=== PATIENT | female | born 1990 | race Caucasian/White ===

== ENCOUNTER → 2016-06-04 | Outpatient (CLI) | payer BC ==
[~2016-06-04] MED LIST: BCPILLS PO; CHOL1000 PO; CLR10 PO; CYAN500T PO; FOLI1TAB7 PO; IBUP-1050 PO; PRENTAB26 PO
== END | disposition home or self-care (01) ==
LOC: C.PAPS 08:19
PROVIDERS: ATTEND Obstetrics & Gynecology
DX: Z01.419 Encounter for gynecological examination (general) (routine) without abnormal findings (principal)

== ENCOUNTER → 2016-09-06 | Outpatient (CLI) | payer BC ==
[2016-09-06 17:43] LABS: PREG INTERNAL NEGATIVE QC NEG CLEAR BACKGROUND; PREG INTERNAL POSITIVE QC POS CONTROL LINE
== END | disposition home or self-care (01) ==
LOC: C.LABBFT 11:25
PROVIDERS: ATTEND Physician Assistant Medical
DX: N92.6 Irregular menstruation, unspecified (principal)

== ENCOUNTER 2016-09-07 08:52 | Emergency (ER) | payer BC ==
[~2016-09-07] VITALS: Ht 175.3 cm; Wt 60.0 kg
[~2016-09-07 08:52] MED LIST changes: -CHOL1000 PO; -CLR10 PO; -CYAN500T PO; -FOLI1TAB7 PO; -PRENTAB26 PO
[2016-09-07 09:01] VITALS: TEMP 36.8; Ht 175.3 cm; Wt 60.0 kg
[2016-09-07] MEDS ORDERED: FOLI1TAB7 PO (09:10)
[2016-09-07] MEDS ORDERED: PRENTAB26 PO (09:10)
[2016-09-07] MEDS ORDERED: CLR10 PO (09:10)
[2016-09-07] MEDS ORDERED: CHOL1000 PO (09:10)
[2016-09-07] MEDS ORDERED: CYAN500T PO (09:10)
[2016-09-07 09:35] LABS: BASO % 0.2 %; BASO ABS # 0.01 K/uL (0-0.2); COMPLETE YES; EOS % 2.4 %; IG% 0.2 %; LYMPH % 15.3 %; LYMPH ABS # 0.69 K/uL (1.2-3.4); MEAN CELL VOLUME 96.8 fL (80-100); MEAN CORPUSCULAR HGB CONC 34.1 g/dl (32-36); MONO % 12.9 %; PLATELET COUNT 245 K/uL (130-400); RED BLOOD COUNT 4.03 M/uL (4.2-5.4)
[2016-09-07 09:37] LABS: URINE APPEARANCE CLEAR (CLEAR); URINE BILIRUBIN NEG (NEG); URINE COLOR YELLOW; URINE EPITHELIAL CELL AUTO >30 /lpf (0-5); URINE NITRITE NEG (NEG); URINE PH 5.5 (4.5-7.5); UROBILINOGEN NEG (NEG)
[2016-09-07 09:45] LABS: REVIEW REQ? NO
[2016-09-07 09:46] LABS: MANUAL MICROSCOPIC REQUIRED? NO
[2016-09-07] MEDS ORDERED: SODIUM CHLORIDE 0.9% 1000ML 1,000 ML IV STA (09:49)
[2016-09-07 09:51] LABS: CALCIUM 8.7 mg/dl (8.5-10.1)
[2016-09-07 09:58] LABS: BUN/CREATININE RATIO 15.7 (10-20); CREATININE 0.7 mg/dl (0.60-1.20); POTASSIUM 3.8 mmol/L (3.5-5.1)
--- NOTE | 2016-09-07 10:55 | DIAGNOSTIC IMAGING REPORT ---
PELVIC ULTRASOUND, TRANSABDOMINAL AND TRANSVAGINAL HISTORY: Bleeding EVALUATE OB-RECEIVING TELLER/VAGINAL BLEEDING COMPARISON: None. FINDINGS: Uterus: Partial bicornuate configuration. Retroflexed. Endometrial stripe: 6 mm Right ovary: 3.3 cm with normal vascular flow Left ovary: 2.8 cm with normal vascular flow. 1.7 cm cyst. Miscellaneous:No pelvic free fluid. IMPRESSION: 1. Bicornuate retroflexed uterus.. 2. Small left ovarian cyst. 3. Otherwise negative study Electronically signed by: Herman Low M.D. 09/07/2016 10:54 AM Dictated Date/Time: 09/07/2016 10:51 AM
--- NOTE | 2016-09-07 11:43 | EMERGENCY ROOM VISIT NOTE ---
History First contact with patient: 09:02 Chief Complaint: ED VAG BLEEDING Stated Complaint: BLEEDING/ 6-8 WKS PREG. REFERRED TO ER History of Present Illness The patient is a 25 year old female who presents to the Emergency Room with complaints of vaginal bleeding that started this morning. Patient states that yesterday she was at her PCP and had a test done that was positive. She states this morning she had a small amount of spotting, called her PCP who told her to go to the ER. She denies any abdominal pain or cramping, back pain , urinary symptoms, abnormal vaginal discharge, fever/chills, dizziness or syncope.. She is . She states she went off her control a few months ago and she and her have been trying to get . Review of Systems GENERAL: Denies fevers, chills, malaise, fatigue, unintentional weight changes. HEENT: Denies dizziness, visual problems, hearing loss, tinnitus. Denies difficulty swallowing or oral lesions. PULMONARY: Denies cough, shortness of breath, sputum production or hemoptysis. CARDIOVASCULAR: Denies chest pain, palpitations, dyspnea on exertion, orthopnea or peripheral edema. GASTROINTESTINAL: Denies diarrhea, constipation, nausea, vomiting, or abdominal pain. GENITOURINARY: Denies dysuria, frequency, urgency or nocturia. + Vaginal bleeding. NEUROLOGIC: Denies history of epilepsy, CVA, TIA or chronic headaches. MUSCULOSKELETAL: Denies history of joint tenderness/swelling. SKIN: Denies rashes or lesions. PSYCHIATRIC: Denies history of depression or mental illness. ENDOCRINE: Denies history of diabetes, thyroid disorders, abnormal hair growth or sexual dysfunction. Past Medical/Surgical History Medical Problems: (1) History of migraine Social History Smoking Status: Never Smoker Alcohol Use: occasionally Drug Use: none Marital Status: in relationship Housing Status: lives with significant other Occupation Status: employed Current/Historical Medications Scheduled Cholecalciferol (Vitamin D3), 1 TAB PO DAILY Cyanocobalamin (Vitamin B-12), 1 TAB PO DAILY Folic Acid (Folvite), 1 TAB PO DAILY Loratadine (Claritin), 10 MG PO DAILY Multivit/Min/Iron/Fol Ac/Pren ( Vitamin), 1 TAB PO DAILY Allergies Coded Allergies: No Known Allergies (Unverified , 07/05/15) Physical Exam Vital Signs Date Time Temp Pulse Resp B/P Pulse Ox O2 Delivery O2 Flow Rate FiO2 09/07/16 12:09 89 18 111/73 99 Room Air 09/07/16 10:47 105 18 121/72 99 Room Air 09/07/16 09:01 36.8 122 16 124/83 99 Room Air Pain Rating (0-10): 0 Physical Exam CONSTITUTIONAL: No acute distress. Well appearing and well nourished. Alert and oriented X 4 with normal affect. HEENT: Normocephalic, atraumatic. Pupils equal, round and reactive to light, EOMI. TMs normal. Pharynx normal. Moist mucous membranes. NECK: Supple, full active range of motion without discomfort. RESPIRATORY: Clear to auscultation bilaterally with no wheezing, crackles, rhonchi or stridor. Equal expansion bilaterally. CARDIOVASCULAR: Regular rate and rhythm with no murmurs, rubs or gallops. Normal peripheral perfusion. No edema. GASTROINTESTINAL: Soft, nontender, nondistended. Bowel sounds present in all quadrants. GENITOURINARY: Pelvic exam performed, no abnormal discharge noted. Cervix is healthy appearing, os is closed, no active bleeding noted. No pain elicited on bimanual exam. MUSCULOSKELETAL: Full range of motion of all joints without discomfort. INTEGUMENTARY: No rash or other significant dermatologic conditions noted. NEUROLOGIC: Cranial nerves II-XII grossly intact. No focal neurologic deficits noted. Medical Decision & Procedures ER Provider Diagnostic Interpretation: PELVIC ULTRASOUND, TRANSABDOMINAL AND TRANSVAGINAL HISTORY: Bleeding EVALUATE OB-SURVEILLANCE TECHNICIAN/VAGINAL BLEEDING COMPARISON: None. FINDINGS: Uterus: Partial bicornuate configuration. Retroflexed. Endometrial stripe: 6 mm Right ovary: 3.3 cm with normal vascular flow Left ovary: 2.8 cm with normal vascular flow. 1.7 cm cyst. Miscellaneous:No pelvic free fluid. IMPRESSION: 1. Bicornuate retroflexed uterus.. 2. Small left ovarian cyst. 3. Otherwise negative study Laboratory Results 09/07/16 09:20 Red Blood Count 4.03, Mean Corpuscular Volume 96.8, Mean Corpuscular Hemoglobin 33.0, Mean Corpuscular Hemoglobin Concent 34.1, Mean Platelet Volume 9.0, Neutrophils (%) (Auto) 69.0, Lymphocytes (%) (Auto) 15.3, Monocytes (%) (Auto) 12.9, Eosinophils (%) (Auto) 2.4, Basophils (%) (Auto) 0.2, Neutrophils # (Auto ) 3.10, Lymphocytes # (Auto) 0.69, Monocytes # (Auto) 0.58, Eosinophils # (Auto ) 0.11, Basophils # (Auto) 0.01 09/07/16 09:20 Test 09/07/16 09:00 09/07/16 09:20 Urine Color YELLOW Urine Appearance CLEAR (CLEAR) Urine pH 5.5 (4.5-7.5) Urine Specific [place] 1.020 (1.000-1.030) Urine Protein NEG (NEG) Urine Glucose (UA) NEG (NEG) Urine Ketones NEG (NEG) Urine Occult Blood 2+ (NEG) Urine Nitrite NEG (NEG) Urine Bilirubin NEG (NEG) Urine Urobilinogen NEG (NEG) Urine Leukocyte Esterase NEG (NEG) Urine WBC (Auto) 1-5 /hpf (0-5) Urine RBC (Auto) 5-10 /hpf (0-4) Urine Hyaline Casts (Auto) 1-5 /lpf (0-5) Urine Epithelial Cells (Auto) >30 /lpf (0-5) Urine Bacteria (Auto) NEG (NEG) Urine Test NEG (NEG) White Blood Count 4.50 K/uL (4.8-10.8) Red Blood Count 4.03 M/uL (4.2-5.4) Hemoglobin 13.3 g/dL (12.0-16.0) Hematocrit 39.0 % (37-47) Mean Corpuscular Volume 96.8 fL (80-100) Mean Corpuscular Hemoglobin 33.0 pg (25-34) Mean Corpuscular Hemoglobin Concent 34.1 g/dl (32-36) Platelet Count 245 K/uL (130-400) Mean Platelet Volume 9.0 fL (7.4-10.4) Neutrophils (%) (Auto) 69.0 % Lymphocytes (%) (Auto) 15.3 % Monocytes (%) (Auto) 12.9 % Eosinophils (%) (Auto) 2.4 % Basophils (%) (Auto) 0.2 % Neutrophils # (Auto) 3.10 K/uL (1.4-6.5) Lymphocytes # (Auto) 0.69 K/uL (1.2-3.4) Monocytes # (Auto) 0.58 K/uL (0.11-0.59) Eosinophils # (Auto) 0.11 K/uL (0-0.5) Basophils # (Auto) 0.01 K/uL (0-0.2) RDW Standard Deviation 42.6 fL (36.4-46.3) RDW Coefficient of Variation 11.9 % (11.5-14.5) Immature Granulocyte % (Auto) 0.2 % Immature Granulocyte # (Auto) 0.01 K/uL (0.00-0.02) Anion Gap 8.0 mmol/L (3-11) Est Creatinine Clear Calc Drug Dose 116.4 ml/min Estimated GFR () 139.6 Estimated GFR (Non- 120.4 BUN/Creatinine Ratio 15.7 (10-20) Calcium Level 8.7 mg/dl (8.5-10.1) Human Chorionic Gonadotropin, Quant 12 mIU/mL Medications Administered Medications (Trade) Dose Ordered Sig/Norah Route Start Time Stop Time Status Last Admin Dose Admin Sodium Chloride (Nss 1000ml) 1,000 ml @ 999 mls/hr Q1H1M STAT IV 09/07/16 09:49 09/07/16 10:49 DC 09/07/16 09:55 999 MLS/HR Medical Decision CC: Patient presenting with complaint of vaginal bleeding in early . Interpretation of Labs: No leukocytosis, no anemia, no UTI. Beta Quant hCG level is extremely low, no previous level for correlation. Differential Diagnosis: Includes, but not limited to ectopic , threatened miscarriage, ovarian cyst, subchorionic hemorrhage. Summary: Patient was evaluated at bedside, history of physical exam performed. She is alert and in no distress. She has no abdominal tenderness on exam. She is initially quite tachycardic on arrival, appears very anxious. She does not appear anemic or dehydrated. Orders were placed at bedside for labs, UA, IV fluid bolus, transvaginal ultrasound to evaluate for competitions of early . Patient discussed with Dr. Arellano, who agrees with my assessment and plan. Labs reviewed, no significant abnormalities. HCG Quant marginally elevated. Ultrasound reviewed, no identifiable IUP. There is a small left ovarian cyst. Given the very low beta Quant and LMP less than 4 weeks ago, I suspect patient may be very early in her , which is why we are unable to identify IUP today. Cannot fully rule out ectopic versus possible threatened miscarriage. Patient and her were educated on this and the importance of close follow-up. Patient reassessed multiple times throughout ED stay, tachycardia resolved after IV fluid bolus. Patient remained stable and without complaint. No active vaginal bleeding while in the ER. Patient was provided with OB referral for follow-up and encouraged to call to make an appointment today. She was also given strict return precautions, she and verbalized understanding. Impression Primary Impression: Threatened miscarriage in early Departure Information Dispostion Home / Self-Care Condition GOOD Referrals Karrie Canales, C.R.N.P. (PCP) Henny Wise M.D. Patient Instructions ED Miscarriage Poss, My [facility] Additional Instructions Drink plenty of fluids to stay well hydrated. Call the OB office to set up a follow-up appointment in the next few days. Please return to the ER for worsening symptoms, including severe abdominal pain , heavy vaginal bleeding (soaking through more than 1 pad per hour) or passing large clots, fever/chills/feeling ill, or any other concerns.
[2016-09-07 12:09] VITALS: BP 111/73; PULSE 89; O2SAT 99
--- NOTE | 2016-09-11 12:32 | DIAGNOSTIC IMAGING REPORT ---
PELVIC ULTRASOUND, TRANSABDOMINAL AND TRANSVAGINAL HISTORY: Bleeding EVALUATE OB-DINING ROOM BUSSER/VAGINAL BLEEDING COMPARISON: None. FINDINGS: Uterus: Partial bicornuate configuration. Retroflexed. Endometrial stripe: 6 mm Right ovary: 3.3 cm with normal vascular flow Left ovary: 2.8 cm with normal vascular flow. 1.7 cm cyst. Miscellaneous:No pelvic free fluid. IMPRESSION: 1. Bicornuate retroflexed uterus.. 2. Small left ovarian cyst. 3. Otherwise negative study Electronically signed by: Herman Low M.D. 09/07/2016 10:54 AM Dictated Date/Time: 09/07/2016 10:51 AM
== END 2016-09-07 12:42 | disposition home or self-care (01) ==
LOC: C.EDB 08:53
DX: O20.0 Threatened abortion (principal)

== ENCOUNTER → 2016-09-11 | Outpatient (CLI) | payer BC ==
[~2016-09-11] MED LIST changes: -BCPILLS PO; +CHOL1000 PO; +CLR10 PO; +CYAN500T PO; +FOLI1TAB7 PO; -IBUP-1050 PO; +PRENTAB26 PO
== END | disposition home or self-care (01) ==
LOC: C.LAB1850 14:52
PROVIDERS: ATTEND Obstetrics & Gynecology
DX: O20.0 Threatened abortion (principal)

== ENCOUNTER → 2016-10-09 | Outpatient (CLI) | payer BC | END | disposition home or self-care (01) | LOC: C.LAB1850 16:53 | PROVIDERS: ATTEND Obstetrics & Gynecology | DX: Z34.90 Encounter for supervision of normal pregnancy, unspecified, unspecified trimester (principal) ==

== ENCOUNTER → 2016-10-15 | Outpatient (CLI) | payer BC | END | disposition home or self-care (01) | LOC: C.LAB1850 16:30 | PROVIDERS: ATTEND Obstetrics & Gynecology | DX: Z34.90 Encounter for supervision of normal pregnancy, unspecified, unspecified trimester (principal) ==

== ENCOUNTER → 2016-11-08 | Outpatient (CLI) | payer BC ==
[2016-11-08 19:17] LABS: URINE APPEARANCE CLEAR (CLEAR); URINE BILIRUBIN NEG (NEG); URINE COLOR YELLOW; URINE EPITHELIAL CELL AUTO >30 /lpf (0-5); URINE NITRITE NEG (NEG); URINE SPECIFIC GRAVITY 1.023 (1.000-1.030); UROBILINOGEN NEG (NEG)
[2016-11-08 19:21] LABS: MANUAL MICROSCOPIC REQUIRED? NO; REVIEW REQ? NO
[2016-11-11 14:08] LABS: CHLAMYDIA TRACH RNA*** NOT DETECTED (NOT DETECTED); GC (NEIS GONORRHOEAE)RNA** NOT DETECTED (NOT DETECTED)
== END | disposition home or self-care (01) ==
LOC: C.LABSPEC 16:50
PROVIDERS: ATTEND Obstetrics & Gynecology
DX: O09.291 Supervision of pregnancy with other poor reproductive or obstetric history, first trimester (principal); Z3A.00 Weeks of gestation of pregnancy not specified

== ENCOUNTER → 2017-01-04 | Outpatient (CLI) | payer BC ==
[2017-01-04 17:26] LABS: GTGD 50 Grams
== END | disposition home or self-care (01) ==
LOC: C.LAB1850 14:53
PROVIDERS: ATTEND Obstetrics & Gynecology
DX: Z34.02 Encounter for supervision of normal first pregnancy, second trimester (principal)

== ENCOUNTER → 2017-03-22 | Outpatient (CLI) | payer BC ==
[~2017-03-22] MED LIST changes: -FOLI1TAB7 PO; +FOLI1TAB8 PO
[2017-03-22 16:20] LABS: URINE APPEARANCE CLEAR (CLEAR); URINE BILIRUBIN NEG (NEG); URINE COLOR YELLOW; URINE EPITHELIAL CELL AUTO >30 /lpf (0-5); URINE NITRITE NEG (NEG); URINE SPECIFIC GRAVITY 1.008 (1.000-1.030); UROBILINOGEN NEG (NEG)
[2017-03-22 16:26] LABS: MANUAL MICROSCOPIC REQUIRED? NO; REVIEW REQ? NO
[2017-03-22 16:32] LABS: HEMATOCRIT 34.7 % (37-47)
[2017-03-22 17:46] LABS: GTGD 50 Grams
== END | disposition home or self-care (01) ==
LOC: C.LAB1850 14:54
PROVIDERS: ATTEND Obstetrics & Gynecology
DX: Z34.02 Encounter for supervision of normal first pregnancy, second trimester (principal); Z3A.00 Weeks of gestation of pregnancy not specified

== ENCOUNTER → 2017-05-17 | Outpatient (CLI) | payer OTHER | END | disposition home or self-care (01) | LOC: C.LABSPEC 17:33 | PROVIDERS: ATTEND Obstetrics & Gynecology | DX: Z34.03 Encounter for supervision of normal first pregnancy, third trimester (principal) ==

== ENCOUNTER 2017-05-31 15:38 | Observation (INO) | payer OTHER ==
[~2017-05-31] VITALS: Ht 170.2 cm; Wt 65.0 kg
[2017-05-31 16:14] VITALS: Ht 170.2 cm; Wt 65.0 kg
[2017-05-31] MEDS ORDERED: MoRPHine SULFATE 2 MG/ML CARP IV STA (16:27)
[2017-05-31] MEDS ORDERED: LACTATED RINGER'S 1000ML 500 ML IV ONE (16:27)
[2017-05-31] MEDS ORDERED: ONDANSETRON INJ 2 MG/ML 2 ML VIAL IV PRN (16:30)
[2017-05-31] MEDS ORDERED: PROMETHAZINE HCL INJ 25 MG in SODIUM CHLORIDE 0.9% 50ML 50 ML IV PRN (16:30)
[2017-05-31 16:53] LABS: BASO % 0.1 %; BASO ABS # 0.01 K/uL (0-0.2); EOS % 1.2 %; EOS ABS # 0.11 K/uL (0-0.5); HEMATOCRIT 35.7 % (37-47); HEMOGLOBIN 12.4 g/dL (12.0-16.0); IG# 0.03 K/uL (0.00-0.02); LYMPH % 12.8 %; MEAN CELL VOLUME 96.7 fL (80-100); MEAN CORPUSCULAR HEMOGLOBIN 33.6 pg (25-34); MEAN PLATELET VOLUME 9.3 fL (7.4-10.4); MONO % 8.9 %; MONO ABS # 0.83 K/uL (0.11-0.59); NEUT % 76.7 %; NEUT ABS # 7.18 K/uL (1.4-6.5); PLATELET COUNT 204 K/uL (130-400); RED CELL DISTRIBUTION WIDTH CV 12.6 % (11.5-14.5); RED CELL DISTRIBUTION WIDTH SD 44.2 fL (36.4-46.3); WHITE BLOOD COUNT 9.36 K/uL (4.8-10.8)
[2017-05-31 17:01] LABS: MEAN CORPUSCULAR HGB CONC 34.7 g/dl (32-36)
[2017-05-31] MEDS ORDERED: CEFTRIAXONE SOD INJ 1 GM in DEXTROSE 5% ADD-VANTAGE 50ML 50 ML IV SCH (17:15)
--- NOTE | 2017-05-31 18:10 | DIAGNOSTIC IMAGING REPORT ---
CT OF THE ABDOMEN AND PELVIS WITHOUT CONTRAST, STONE PROTOCOL CLINICAL HISTORY: Left flank pain. 37 weeks patent. Pyelonephritis. COMPARISON STUDY: Pelvic ultrasound September 07, 2016. TECHNIQUE: Helical axial images of the abdomen and pelvis were obtained without IV or oral contrast according to renal stone protocol. A dose lowering technique was utilized adhering to the principles of ALARA. FINDINGS: Lung bases are clear. Unenhanced images of liver, spleen, adrenal glands and pancreas are unremarkable. There is moderate left and severe right hydroureteronephrosis. The ureters are dilated to the level of the pelvis. This dilatation is likely related to a gravid uterus. A fetus is noted with breech presentation. Please note that the fetus is suboptimally assessed by CT. There are punctate bilateral renal calculi that measure up to 2 mm. No definite ureteral calculi are identified. A 3 mm right pelvic calcification shown on image 383 of 491 is indeterminate. This could reflect a phlebolith or less likely a ureteral calculus. There are no left ureteral calculi. There is no evidence for a bowel obstruction. No suspicious osseous lesions are present. There is no pneumatosis, free air or portal venous gas. No bladder calculi are present. The appendix is not visualized. IMPRESSION: 1. Severe right and moderate left hydroureteronephrosis with dilatation of the ureters to the level of the pelvis. This dilatation is likely due to compression by the gravid uterus. 2. Punctate bilateral intrarenal calculi. 3 mm right pelvic calcification likely reflects a phlebolith however a small ureteral calculus could appear similar. No left ureteral calculi. 3. Intrauterine gestation. Breech presentation. Electronically signed by: Tonny Monahan M.D. 05/31/2017 6:09 PM Dictated Date/Time: 05/31/2017 5:56 PM
[2017-05-31] MEDS ORDERED: HYDROmorphone INJ 1 MG/ML SYR IV PRN (18:45)
[2017-05-31] MEDS ORDERED: HYDROmorphone INJ 1 MG/ML SYR ONE (18:45)
[2017-05-31] MEDS ORDERED: ACETAMINOPHEN IV 100 ML IV PRN (19:15)
[2017-05-31] MEDS: LACTATED RINGER'S 1000ML 1,000 ML IV SCH (21:02)
[2017-05-31] MEDS: CYCLOBENZAPRINE HCL 5 MG TAB PO PRN (22:06)
[2017-05-31] MEDS ORDERED: IV FLUIDS COMPLETED PRN (23:45)
[2017-06-01] MEDS: LACTATED RINGER'S 1000ML 1,000 ML IV SCH (02:07)
[2017-06-01] MEDS: CYCLOBENZAPRINE HCL 5 MG TAB PO PRN (06:18)
[2017-06-01] MEDS ORDERED: FLX5 PO (07:34)
--- NOTE | 2017-06-01 07:38 | Discharge Instructions ---
Discharge Instructions Date of Service Jun 01, 2017. Admission Reason for Admission: Pyelonephritis Discharge Discharge Diagnosis / Problem: back pain in Discharge Goals Goal(s): Continuing OB care Activity Recommendations Activity Limitations: resume your previous activity Lifting Limitations: no more than 10 pounds . Instructions / Follow-Up Instructions / Follow-Up SPECIAL CARE INSTRUCTIONS: Call Doctor if: * Regular contractions every 5 minutes. * Bleeding * Water breaks or is leaking * Decreased movement * Fever >100.4 degrees F * Pain not relieved by routine measures or pain medication ordered. FOLLOW UP VISIT: Return to Labor and Delivery on for /call for appointment time . Follow-up Visit with: When: Current Hospital Diet Patient's current hospital diet: Regular OB Diet Discharge Diet Recommended Diet: Regular OB Diet Pending Studies Studies pending at discharge: yes List of pending studies: urine culture Medical Emergencies . Who to Call and When: Medical Emergencies: If at any time you feel your situation is an emergency, please call 911 immediately. . Non-Emergent Contact Non-Emergency issues call your: Windows Systems Administrator . . "Provider Documentation" section prepared by Marielle Blanc. . VTE Core Measure Inpt VTE Proph given/why not?: Treatment not indicated
--- NOTE | 2017-06-05 13:45 | DISCHARGE SUMMARY ---
PRINCIPAL DIAGNOSES: Intrauterine at 37 weeks, breech presentation and left flank pain. HISTORY OF PRESENT ILLNESS: The patient is a 26-year-old G1, P0 white female who presents at 37 weeks with left flank pain. The pain had been ongoing for approximately 36 hours and appeared to be getting worse. It was a crescendo decrescendo kind of pain. Her urine was totally negative for bacteria and for any signs of infection. A CT scan was performed to rule out stone and there did not appear to be any stones in the left ureter, although there was a small calculus in the right kidney. The patient was afebrile. White count was normal. She was given IV Dilaudid and morphine which helped the pain somewhat, but not significantly. She was given IV Tylenol which seemed to help the most and then Flexeril 5 mg. The Flexeril seemed to make the biggest difference in her pain. By the morning of June 01 the patient was ready to go home and felt her pain was under control with the Flexeril. Hence the diagnosis of a probable muscular origin for her pain. The baby has remained category 1 throughout her hospital stay. There were only irregular contractions present. She was sent home in good condition with a prescription for Flexeril 5 mg p.o. q. 8 hours p.r.n. flank pain. She is to call for a temperature of 101 degrees or higher, burning or changes with urination, increased contractions that were every 5 minutes and lasting for at least a minute, particularly if this was happening for at least an hour. The patient is scheduled for a primary section on June 10 because of a persistent breech presentation and a septate uterus. She will follow up in the office for her usual OB care.
== END 2017-06-01 08:00 | disposition home or self-care (01) ==
LOC: C.OPB 15:38 → C.LD 15:38 → C.OPB 22:31
PROVIDERS: ADMIT Obstetrics & Gynecology; ATTEND Obstetrics & Gynecology
DX: O26.893 Other specified pregnancy related conditions, third trimester (principal); M54.9 Dorsalgia, unspecified; O62.9 Abnormality of forces of labor, unspecified; Z3A.37 37 weeks gestation of pregnancy

== ENCOUNTER 2017-06-10 07:04 | Inpatient (IN) | payer OTHER ==
--- NOTE | 2017-06-07 13:20 | PAT Medication Instructions ---
Service Date Jun 07, 2017. Current Home Medication List Cholecalciferol (Vitamin D3), 1 TAB PO HS Cyanocobalamin (Vitamin B-12), 1 TAB PO HS Cyclobenzaprine Hcl (Flexeril), 5 MG PO TID PRN for prn Folic Acid (Folvite), 1 TAB PO HS Multivit/Min/Iron/Fol Ac/Pren ( Vitamin), 1 TAB PO HS Medication Instructions For Your Scheduled Surgery - Hold the following medications the morning of surgery: Cyclobenzaprine Hcl (Flexeril), 5 MG PO TID PRN for prn - Take the following medications as scheduled the night before surgery: Cholecalciferol (Vitamin D3), 1 TAB PO HS Cyanocobalamin (Vitamin B-12), 1 TAB PO HS Cyclobenzaprine Hcl (Flexeril), 5 MG PO TID PRN for prn (if needed) Folic Acid (Folvite), 1 TAB PO HS Multivit/Min/Iron/Fol Ac/Pren ( Vitamin), 1 TAB PO HS If you have any questions please call us at [phone] or [phone] or [phone]
--- NOTE | 2017-06-07 13:55 | HISTORY & PHYSICAL EXAMINATION ---
DATE OF ADMISSION: 06/10/2017 PRINCIPAL DIAGNOSIS: Persistent breech presentation and history of septate uterus at term. PRINCIPAL PROCEDURE: Primary low transverse cervical section. HISTORY OF PRESENT ILLNESS: The patient is a 26-year-old 2, para 0-0-1-0 white female, EDC of 06/15/2017, who presents for primary section because of persistent breech presentation. has been complicated by a septate uterus. The infant has been breech presentation since approximately 32 weeks. Her has also been complicated by musculoskeletal left flank pain, which has been resolved with Flexeril that she takes as needed. The patient is presenting for primary section because of persistent breech presentation. She understands the risks of procedure and is willing to proceed. PAST MEDICAL HISTORY: Significant for migraines with aura and a history of Hodgkin's lymphoma at age 16, now in remission. PAST SURGICAL HISTORY: [place] teeth removed, removal of lymph nodes from her neck at age 16 leading to the diagnosis of Hodgkin's lymphoma. ALLERGIES: SHE HAS ADVERSE REACTIONS TO CODEINE, but no allergic reaction. She is able to take morphine and Dilaudid without any issues. 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 Pap smears have been normal. No history of PID , VD , or Herpes. She had one early spontaneous miscarriage. She has a septate uterus. MEDICATIONS: vitamins and Flexeril 5 mg dose as needed for back spasm. HISTORY: Blood type is B positive. Antibody screen is negative. Rubella is immune. RPR is nonreactive. Hepatitis is negative. HIV is negative. Chlamydia and GC are negative. Glucolas are within normal limits. Anatomy scan was complete and normal. Hemoglobin at 28 weeks was 11.7 and hematocrit 34.7. GBS is negative. Growth scans have been within normal limits with an estimated weight of 57th percentile, AFIs have also been within normal limits. She had a echocardiogram done because of a history of congenital ASD, which closed spontaneously in the patient, Patricia. SOCIAL HISTORY: She does not smoke or drink. FAMILY HISTORY: Noncontributory. PHYSICAL EXAMINATION: VITAL SIGNS: Blood pressure is 110/70. Vital signs are stable. LUNGS: Clear to auscultation. HEART: Regular rate and rhythm. No murmurs or gallops. ABDOMEN: Gravid. Fundal height is measuring 39 cm. PELVIC: Deferred. EXTREMITIES: Without cyanosis or edema. There is no calf tenderness present. ASSESSMENT: A 26-year-old at 39 weeks' gestation with persistent breech presentation and the infant is still in the breech presentation today. She is scheduled for primary section on June 10. Please see the orders for further directions. MTDD
[2017-06-07 14:29] LABS: BASO % 0.2 %; BASO ABS # 0.02 K/uL (0-0.2); EOS % 1.6 %; EOS ABS # 0.15 K/uL (0-0.5); HEMATOCRIT 36.2 % (37-47); HEMOGLOBIN 12.5 g/dL (12.0-16.0); IG# 0.05 K/uL (0.00-0.02); LYMPH % 14.5 %; LYMPH ABS # 1.35 K/uL (1.2-3.4); MEAN CORPUSCULAR HEMOGLOBIN 33.2 pg (25-34); MEAN CORPUSCULAR HGB CONC 34.5 g/dl (32-36); MEAN PLATELET VOLUME 9.4 fL (7.4-10.4); MONO ABS # 0.93 K/uL (0.11-0.59); NEUT % 73.2 %; NEUT ABS # 6.79 K/uL (1.4-6.5); PLATELET COUNT 241 K/uL (130-400); RED CELL DISTRIBUTION WIDTH CV 12.4 % (11.5-14.5); RED CELL DISTRIBUTION WIDTH SD 42.9 fL (36.4-46.3); WHITE BLOOD COUNT 9.29 K/uL (4.8-10.8)
[~2017-06-10] VITALS: Ht 170.2 cm; Wt 65.0 kg
[2017-06-10] VITALS (10 sets, daily range): BP systolic 96–112; BP diastolic 59–69; PULSE 76–87; TEMP 36.5–36.9; O2SAT 96–100; Ht 170.2 cm; Wt 65.0 kg
[~2017-06-10 07:04] MED LIST changes: +CEFAZOLIN IV 2,000 MG in SYRINGE 0 ML IV SCH; +CITRIC ACID/SODIUM CITRATE 15 ML UDC PO SCH; -CLR10 PO; +CYCL5TAB PO; +DiphenhydrAMINE HCL 50 MG/ML VIAL IV PRN
[2017-06-10] MEDS: LACTATED RINGER'S 1000ML 1,000 ML IV SCH ×2 (07:24→08:58)
--- NOTE | 2017-06-10 07:24 | History & Physical Bridge Note ---
H&P Re-Evaluation Bridge Note: I have examined the patient, reviewed the History & Physical and in the interval since the performance of the History & Physical I have noted the following changes of clinical significance: No changes noted
[2017-06-10] MEDS ORDERED: MoRPHine SULFATE PF 1 MG/ML 10 ML AMP/VIAL ONE (09:08)
[2017-06-10] MEDS ORDERED: SODIUM CHLORIDE 0.9% 1000ML 1,000 ML IV PRN (09:12)
[2017-06-10] MEDS ORDERED: LACTATED RINGER'S 1000ML 500 ML IV PRN (09:12)
[2017-06-10] MEDS ORDERED: NALOXONE HCL INJ 0.08 MG in SYRINGE 1.8 ML IV PRN (09:12)
[2017-06-10] MEDS ORDERED: NALOXONE HCL INJ 1 MG in SODIUM CHLORIDE 0.9% 1000ML 1,000 ML IV PRN ×4 (09:12)
[2017-06-10] MEDS ORDERED: PROMETHAZINE HCL INJ 12.5 MG in SODIUM CHLORIDE 0.9% 50ML 50 ML IV PRN (09:15)
[2017-06-10] MEDS ORDERED: NALOXONE HCL 0.4 MG/1 ML VIAL/CARP IV PRN (09:15)
[2017-06-10] MEDS ORDERED: NO NARCOTICS OR SEDATIVES SCH (09:15)
[2017-06-10] MEDS ORDERED: NALBUPHINE HCL INJ 10 MG/ML AMP IV PRN (09:15)
[2017-06-10] MEDS ORDERED: MoRPHine SULFATE PF 1 MG/ML 10 ML AMP/VIAL EPI PRN (09:15)
[2017-06-10] MEDS ORDERED: DiphenhydrAMINE HCL 50 MG/ML VIAL IV PRN (09:15)
[2017-06-10] MEDS ORDERED: ATROPINE SULFATE 0.1 MG/ML 5ML SYR IV PRN (09:15)
[2017-06-10] MEDS ORDERED: ONDANSETRON INJ 2 MG/ML 2 ML VIAL IV PRN ×2 (09:15)
[2017-06-10] MEDS ORDERED: KETOROLAC TROMETHAMINE 30 MG/ML VIAL IV. PRN ×2 (09:15)
[2017-06-10] MEDS ORDERED: PHENYLEPHRINE 100MCG/ML 5ML SYR IV PRN (09:15)
[2017-06-10] MEDS ORDERED: EpHEDrine SULFATE INJ 50 MG/ML AMP IV PRN ×2 (09:15)
[2017-06-10] MEDS ORDERED: MEPERIDINE HCL 25 MG/ML CARP IV PRN ×2 (09:15)
[2017-06-10] MEDS ORDERED: DC INTRASPINAL MORPHINE SCH (09:45)
[2017-06-10] MEDS ORDERED: PHENYLEPHRINE 100MCG/ML 5ML SYR ONE (10:06)
[2017-06-10] MEDS ORDERED: METOCLOPRAMIDE HCL INJ 5 MG/ML 2 ML VIAL ONE (10:06)
[2017-06-10] MEDS ORDERED: EpHEDrine SULFATE 50MG/5ML SYR ONE (10:06)
[2017-06-10] MEDS ORDERED: ONDANSETRON INJ 2 MG/ML 2 ML VIAL ONE (10:06)
[2017-06-10] MEDS ORDERED: OXYTOCIN INJ 10 UNITS/ML VIAL ONE ×3 (10:06→10:22)
[2017-06-10] MEDS ORDERED: SENNA 8.6 MG TAB PO PRN (10:45)
[2017-06-10] MEDS ORDERED: LANOLIN OINT EXT PRN (10:45)
[2017-06-10] MEDS ORDERED: MAGNESIUM HYDROXIDE SUSP 30 ML UDC PO PRN (10:45)
--- NOTE | 2017-06-10 10:51 | [facility] Post Operative Brief Note ---
Immediate Operative Summary Operative Date Jun 10, 2017. Pre-Operative Diagnosis Term , Breech presentation, Bicornate uterus Post-Operative Diagnosis same with delivery of living male child at 1010 Procedure(s) Performed Low Transverse Primary Caesarean Section Surgeon Dr. Marielle Bush Retail Sales Consultant Surgeon(s) Rosina Zaldivar RN Estimated Blood Loss 600 Findings Consistent with Post-Op Diagnosis Fluids (cc crystalloids) 3500 Specimens a. placenta- hold b. cord blood specimen Drains Pagan to straight drainage Anesthesia Type Spinal Complication(s) none Disposition Accompanied Pt To Recover: no Disposition: L&D
--- NOTE | 2017-06-10 11:10 | OPERATIVE REPORT ---
DATE OF OPERATION: 06/10/2017 SURGEON: Dr. Marielle Prasad. PARTS COUNTER CLERK: Desiree Zaldivar RN. PREOPERATIVE DIAGNOSES: Intrauterine at 39 weeks, persistent breech presentation, and a bicornuate uterus. POSTOPERATIVE DIAGNOSES: Same plus delivery of a viable male infant, 8 pounds 3 ounces. PROCEDURE: Primary low transverse section. ANESTHESIA: Subarachnoid block. BLOOD LOSS: 600 mL. HISTORY OF PRESENT ILLNESS: The patient is a 26-year-old 2, para 0-0-1-0 white female who presents at 39+ weeks for primary section because of persistent breech presentation. She also has a bicornuate uterus. The patient understands the risks of the procedure and is willing to proceed. GROSS FINDINGS: The uterus is gravid and consistent with a term in size. The is in the right horn in the double footling breech presentation. Bilateral ovaries and fallopian tubes are grossly normal. DESCRIPTION OF PROCEDURE: After the patient received adequate subarachnoid block, she was prepped and draped in usual sterile fashion. A low transverse skin incision was made with the scalpel and carried to the fascia with the same scalpel. The fascial incision was then extended with Christina scissors. The underlying rectus muscles were bluntly divided along the midline and the underlying peritoneum was then elevated and entered sharply. The bladder was taken down off the lower uterine segment with Metzenbaum scissors and placed behind the bladder blade. The uterus was entered with the scalpel and extended transversely. The was delivered from the double footling presentation with moderate fundal pressure. Mouth and nasopharynx were suctioned on delivery. There was vigorous crying at the time of delivery. Placenta was then manually removed and the uterus exteriorized and covered with a clean lap sponge. The uterine cavity was explored and some retained membranes were removed. The uterus was then closed in a running locking imbricating fashion with 0 Monocryl in 2 layers. Hemostasis was noted to be excellent. The posterior cul-de-sac was then irrigated with normal saline. The uterus was placed back inside the abdominal cavity. The gutters were explored and found to be free of any clot or fluid. There were several clots removed from the anterior cul-de-sac. The uterine incision continued to have excellent hemostasis. The rectus muscles were brought together in the midline with a running stitch of 0 Monocryl. The fascia was closed in a running fashion with 0 Vicryl. After irrigating the fat layer, the skin edges were reapproximated using a subcuticular stitch of 4-0 Vicryl. Urine was clear at the end of the case. Mother and tolerated the procedure well. I attest to the content of the Intraoperative Record and any orders documented therein. Any exception s are noted below.
--- NOTE | 2017-06-10 12:50 | Anesthesiology Progress Note ---
Anesthesia Post Op Note Date & Time Jun 10, 2017 at 12:50 Notes Mental Status: alert / awake / arousable, participated in evaluation Pt Amnestic to Procedure: Yes Nausea / Vomiting: adequately controlled Pain: adequately controlled Airway Patency, RR, SpO2: stable & adequate BP & HR: stable & adequate Hydration State: stable & adequate Anesthetic Complications: no major complications apparent
[2017-06-10] MEDS: OXYTOCIN INJ 20 UNITS in LACTATED RINGER'S 1000ML 1,000 ML IV SCH ×2 (13:25→22:22)
[2017-06-10] MEDS: SIMETHICONE 80 MG CHEW PO SCH ×3 (13:27→20:01)
[2017-06-10] MEDS: DOCUSATE SODIUM 100 MG CAP PO SCH (20:01)
[2017-06-11 00:30] VITALS: O2SAT 95
[2017-06-11 01:30] VITALS: O2SAT 96
[2017-06-11] MEDS ORDERED: KETOROLAC TROMETHAMINE 30 MG/ML VIAL IV. PRN (02:00)
[2017-06-11] MEDS ORDERED: ONDANSETRON INJ 2 MG/ML 2 ML VIAL IV PRN (02:00)
[2017-06-11] MEDS ORDERED: MEPERIDINE HCL 50 MG/ML CARP IV PRN ×2 (02:00)
[2017-06-11] MEDS ORDERED: PROMETHAZINE HCL INJ 25 MG in SODIUM CHLORIDE 0.9% 50ML 50 ML IV PRN (02:00)
[2017-06-11] MEDS ORDERED: ZOLPIDEM TARTRATE 5 MG TAB PO PRN (02:00)
[2017-06-11] MEDS ORDERED: OXYCODONE/ACETAMINOPHEN 5-325 TAB PO PRN (02:00)
[2017-06-11 04:30] VITALS: BP 103/69; PULSE 91; TEMP 37
[2017-06-11] MEDS: IBUPROFEN 600 MG TAB PO PRN ×4 (04:56→19:46)
[2017-06-11] MEDS: OXYCODONE/ACETAMINOPHEN 5-325 TAB PO PRN ×4 (04:57→19:46)
[2017-06-11 06:37] LABS: HEMATOCRIT 30.9 % (37-47); HEMOGLOBIN 10.8 g/dL (12.0-16.0)
[2017-06-11 07:30] VITALS: BP 103/68; PULSE 88; TEMP 36.9; O2SAT 98
--- NOTE | 2017-06-11 07:44 | Progress Note ---
Subjective Jun 11, 2017. Subjective conversation w/ patient, physical exam Ambulation: ambulating normally Passing Gas: Yes Diet Tolerance: Regular Diet Lochia: Moderate Feeding Type: Breast Feeding Comment: percocet making her a little nauseous Review of Systems Breast: No see HPI, No breast lump, No change in shape, No nipple discharge, No breast pain, No problem reported Abdomen: No pain, No nausea, No vomiting, No diarrhea, No constipation, No GI bleeding, No problem reported Female : No see HPI, No dysuria, No urinary frequency, No hematuria, No incontinence, No abnormal vaginal bleeding, No vaginal discharge, No problem reported Objective Vital Signs Date Time Temp Pulse Resp B/P (MAP) Pulse Ox O2 Delivery O2 Flow Rate FiO2 06/11/17 04:30 37.0 91 18 103/69 (80) Room Air 06/11/17 01:30 18 96 06/11/17 00:30 18 95 06/10/17 23:55 18 96 06/10/17 23:55 36.9 87 18 96/59 (71) 96 Room Air 06/10/17 23:55 96 Room Air 06/10/17 23:00 18 96 06/10/17 22:30 18 98 06/10/17 21:30 18 96 06/10/17 20:30 18 96 06/10/17 19:45 18 99 06/10/17 19:45 36.8 76 18 101/69 (80) 99 Room Air 06/10/17 19:45 99 Room Air 06/10/17 18:00 18 100 06/10/17 17:00 18 99 06/10/17 16:00 18 99 06/10/17 16:00 99 Room Air 06/10/17 16:00 36.5 82 18 112/69 (83) 99 Room Air 06/10/17 15:15 99 Room Air 06/10/17 15:15 18 99 Physical Exam General Appearance: WELL-APPEARING, NO APPARENT DISTRESS Abdomen: soft Fundus: Firm, Non-Tender, Relation to Umbilicus (1 below U) Incision Description: Clean, Dry & Intact Extremities: no calf tenderness Laboratory Results Last 24 Hours Test 06/11/17 06:22 Hemoglobin 10.8 g/dL Hematocrit 30.9 % Assessment and Plan Problem List Medical Problems: (1) Threatened miscarriage in early Status: Acute Day#: 1 Continue Routine Care: stable post-op course will try 1/2 tab percocet & repeat in 1/2 hour as needed.
[2017-06-11] MEDS: SIMETHICONE 80 MG CHEW PO SCH ×4 (08:23→19:45)
[2017-06-11] MEDS: PRENATAL VITAMIN TAB PO SCH (08:23)
[2017-06-11] MEDS: DOCUSATE SODIUM 100 MG CAP PO SCH ×2 (08:23→19:45)
--- NOTE | 2017-06-11 11:36 | Anesthesiology Progress Note ---
Anesthesia Post Op Note Date & Time Jun 11, 2017 at 11:35 Vital Signs Pain Intensity: 4.0 Vital Signs Past 12 Hours Date Time Temp Pulse Resp B/P (MAP) Pulse Ox O2 Delivery O2 Flow Rate FiO2 06/11/17 07:30 98 Room Air 06/11/17 07:30 36.9 88 16 103/68 (80) 98 Room Air 06/11/17 07:20 Room Air 06/11/17 04:30 37.0 91 18 103/69 (80) Room Air 06/11/17 01:30 18 96 06/11/17 00:30 18 95 06/10/17 23:55 18 96 06/10/17 23:55 36.9 87 18 96/59 (71) 96 Room Air 06/10/17 23:55 96 Room Air Notes Mental Status: alert / awake / arousable, participated in evaluation Pt Amnestic to Procedure: Yes Nausea / Vomiting: adequately controlled Pain: adequately controlled Airway Patency, RR, SpO2: stable & adequate BP & HR: stable & adequate Hydration State: stable & adequate Anesthetic Complications: no major complications apparent Awake, alert, satisfied with anesthesia care. VSS.
[2017-06-11 12:24] VITALS: BP 101/65; PULSE 86; TEMP 37.2; O2SAT 97
[2017-06-11 17:00] VITALS: BP 95/62; PULSE 94; TEMP 36.8
[2017-06-11] MEDS ORDERED: BISACODYL 5 MG TABEC PO ONE (22:00)
[2017-06-12 00:25] VITALS: BP 108/67; PULSE 94; TEMP 36.9; O2SAT 97
[2017-06-12] MEDS: OXYCODONE/ACETAMINOPHEN 5-325 TAB PO PRN ×3 (04:18→17:50)
[2017-06-12] MEDS: IBUPROFEN 600 MG TAB PO PRN ×3 (04:19→17:50)
[2017-06-12 06:21] LABS: BASO % 0.2 %; BASO ABS # 0.02 K/uL (0-0.2); EOS % 2.3 %; EOS ABS # 0.24 K/uL (0-0.5); HEMATOCRIT 31.3 % (37-47); HEMOGLOBIN 10.9 g/dL (12.0-16.0); IG# 0.03 K/uL (0.00-0.02); LYMPH % 12.9 %; LYMPH ABS # 1.33 K/uL (1.2-3.4); MEAN CELL VOLUME 96.3 fL (80-100); MEAN CORPUSCULAR HEMOGLOBIN 33.5 pg (25-34); MEAN CORPUSCULAR HGB CONC 34.8 g/dl (32-36); MEAN PLATELET VOLUME 8.8 fL (7.4-10.4); MONO % 10.4 %; MONO ABS # 1.07 K/uL (0.11-0.59); NEUT % 73.9 %; NEUT ABS # 7.61 K/uL (1.4-6.5); PLATELET COUNT 203 K/uL (130-400); RED CELL DISTRIBUTION WIDTH CV 12.8 % (11.5-14.5)
[2017-06-12 08:15] VITALS: BP 114/72; PULSE 92; TEMP 36.7; O2SAT 97
[2017-06-12] MEDS: DOCUSATE SODIUM 100 MG CAP PO SCH ×2 (08:21→19:43)
[2017-06-12] MEDS: PRENATAL VITAMIN TAB PO SCH (08:21)
[2017-06-12] MEDS: SIMETHICONE 80 MG CHEW PO SCH ×4 (08:21→19:43)
--- NOTE | 2017-06-12 09:03 | Progress Note ---
Progress Note Date of Service Jun 12, 2017. Progress Note pt indicated to nurse left calf pain, pt states mostly notes with scds in place and when directly touching area. she denies cp or sob o/ bilateral calves normal size and equal. left calf with point tenderness mid calf. no redness, no cord. neg candelaria's a/ pod #2 from c/s with calf pain p/will check duplex, doubt dvt, likely musculoskeletal but given risk factors will check for dvt.
--- NOTE | 2017-06-12 11:05 | DIAGNOSTIC IMAGING REPORT ---
L VENOUS DOPP LOWER EXT UNILAT CLINICAL HISTORY: 26 years-old Female presenting with left calf pain, postop section. TECHNIQUE: Real-time grayscale and color and spectral Doppler ultrasound imaging of the veins of the left lower extremity was performed. Compression and augmentation were also utilized. COMPARISON: None. FINDINGS: Left: Common femoral vein: Patent. Greater saphenous vein: Patent. Deep femoral vein: Patent. Femoral vein: Patent. Popliteal vein: Patent. Calf veins: Patent. Other: None. IMPRESSION: No evidence of deep venous thrombosis. Electronically signed by: Torrey Lancaster M.D. 06/12/2017 11:04 AM Dictated Date/Time: 06/12/2017 11:03 AM
--- NOTE | 2017-06-12 11:14 | OB/GYN Progress Note ---
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 Subjective conversation w/ patient, physical exam Ambulation: ambulating normally Voiding: no voiding problems Passing Gas: Yes Diet Tolerance: Regular Diet Lochia: Moderate Feeding Type: Breast Feeding Pain: controlled Review of Systems Constitutional: No problem reported Respiratory: No problem reported Cardiac: No problem reported Breast: No problem reported Abdomen: No problem reported Female : No problem reported Objective Vital Signs Date Time Temp Pulse Resp B/P (MAP) Pulse Ox O2 Delivery O2 Flow Rate FiO2 06/12/17 08:15 36.7 92 16 114/72 (86) 97 Room Air 92 06/12/17 08:15 97 Room Air 06/12/17 00:25 97 Room Air 06/12/17 00:25 36.9 94 18 108/67 (81) 97 Room Air 06/11/17 17:00 Room Air 06/11/17 17:00 36.8 94 16 95/62 (73) Room Air 06/11/17 12:24 37.2 86 14 101/65 (77) 97 Physical Exam General Appearance: WELL-APPEARING, NO APPARENT DISTRESS Respiratory/Chest: no respiratory distress Cardiovascular: regular rate, rhythm Abdomen: non tender, soft Fundus: Firm Incision Description: Clean, Dry & Intact Extremities: normal range of motion Laboratory Results Last 24 Hours Test 06/12/17 05:50 White Blood Count 10.30 K/uL Red Blood Count 3.25 M/uL Hemoglobin 10.9 g/dL Hematocrit 31.3 % Mean Corpuscular Volume 96.3 fL Mean Corpuscular Hemoglobin 33.5 pg Mean Corpuscular Hemoglobin Concent 34.8 g/dl Platelet Count 203 K/uL Mean Platelet Volume 8.8 fL Neutrophils (%) (Auto) 73.9 % Lymphocytes (%) (Auto) 12.9 % Monocytes (%) (Auto) 10.4 % Eosinophils (%) (Auto) 2.3 % Basophils (%) (Auto) 0.2 % Neutrophils # (Auto) 7.61 K/uL Lymphocytes # (Auto) 1.33 K/uL Monocytes # (Auto) 1.07 K/uL Eosinophils # (Auto) 0.24 K/uL Basophils # (Auto) 0.02 K/uL RDW Standard Deviation 45.0 fL RDW Coefficient of Variation 12.8 % Immature Granulocyte % (Auto) 0.3 % Immature Granulocyte # (Auto) 0.03 K/uL Assessment and Plan Post-Op Day Number: 2 Continue Routine Care: Doing well POD#2. Patient did not mention this to me during my rounds this morning, however told RN later that she was experiencing calf pain - please see Dr Mann's documentation for this followup.
[2017-06-12 15:30] VITALS: BP 106/71; PULSE 86; TEMP 36.8
--- NOTE | 2017-06-12 21:58 | Discharge Instructions ---
Discharge Instructions Date of Service Jun 12, 2017. Admission Reason for Admission: Breech Presentation Discharge Discharge Diagnosis / Problem: after delivery Discharge Goals Goal(s): Routine recovery after Medications Continue Dispensed Medications: supercream, dermaplast, tucks, lansinoh Activity Recommendations Activity Limitations: as noted below ACTIVITY RECOMMENDATIONS: * Gradual return to full activity over the next 2-3 weeks. * No lifting - nothing heavier than baby over the next 2-3 weeks. * Do not engage in vigorous exercise, sexual activity or sports until cleared by your physician. * Do not drive or operate any motorized equipment until cleared by your physician. * You may shower/bathe daily. MEDICATIONS: For discomfort or pain, you may use Acetaminophen (Tylenol), Ibuprofen (Advil), or Naproxen (Aleve) following the package directions. For constipation you may use Colace following the package directions. BREAST CARE: If you are not breast feeding: * Wear a supportive bra 24 hours a day for one to two weeks. * Avoid stimulating your breasts and nipples as much as possible during the first few weeks after delivery. * When taking a shower, have the warm water hit your back, not breasts. * When your breasts feel full, apply ice packs. Usually three to four times a day helps ease the discomfort. * Take a mild pain medication (Tylenol / Motrin) when you are uncomfortable. If breast feeding: * Use breast milk to lubricate nipples. Lansinoh cream may be used for sore nipples. You do not need to remove cream prior to breast feeding. If using a different brand of cream, check the label for directions regarding removal of cream prior to nursing. * Wear a supportive bra. * If having problems with breasts or breast feeding, call a development consultant or your health care provider. SPECIAL CARE INSTRUCTIONS: When you are discharged from the hospital, it is important for you to follow the instructions listed below: * During the first week at home, you should be able to care for yourself and your baby. In addition, the usual light household activities are encouraged. * Limit your activities to the way you feel. Do not try to clean the house or move furniture. Be sensible. * If you actively engage in sports and have done so up until the time of your delivery, you may resume these activities as soon as you feel able. This may take up to one month or even longer. Use good judgment. * Continue to take your vitamins for at least six weeks after the of your baby. * Your diet need not be limited unless you were on a special diet before your delivery. Breast-feeding mothers need around 2500 calories per day and at least 64-80 ounces of fluid per day (8 to 10 glasses). * You should eat foods from the four major food groups. Crash diets or fad diets are to be avoided. Eating lean meats, fresh fruits and vegetables, low-fat dairy products, high fiber foods and a regular exercise program, will help you get back to your pre- weight without putting your health at risk. * Constipation is sometimes a problem after delivery. Take a mild laxative as needed. If breast feeding, Milk of Magnesia is acceptable to use. You may use a suppository or Fleets enema. * A daily shower or tub bath is suggested. Wash incision daily with warm soapy water and pat dry. It doesn't need to be covered unless drainage is present. * A bloody vaginal discharge will usually continue until around four weeks . A small amount of bleeding may continue for as long as six weeks. Vaginal discharge changes from the bright red bleeding after delivery to pink then brownish and finally yellowish-pink before becoming white and disappearing. * Bleeding may increase with activity. Your first period may come in 4-8 weeks. If you are breast feeding, your period may be delayed even longer. * Old Field (sex) can begin whenever both you and your partner feel comfortable and do not have any form of genital infection. It is recommended that you wait at least six weeks for internal and external healing to occur. If you have questions, please talk to your health care practitioner. A condom should be used to prevent infection and . * Foreplay, gentle intercourse and lubrication is very important the first several times to prevent pain. A water-based lubricant such as K-Y jelly or Astroglide may be used. * If you have RH negative blood and your baby is RH positive, you will receive RHOGAM by injection prior to discharge. The nurse will give you a card to keep with you that has the date and place that you received RHOGAM after delivery. * During your care, you had a Rubella screen done to check for the presence of rubella antibodies in your blood. If your test was negative, you will receive a Rubella vaccine prior to discharge. This vaccine may cause a fever, soreness at the injection site and flu-like symptoms. If these symptoms persist, notify your health care practitioner. is not advised for one month after a Rubella vaccine. * Verbalizes understanding of car seat law as reviewed with patient nursing. * Car Seat hand-out given and reviewed with patient by nursing. * Shaken baby information reviewed with patient by nursing. Call you doctor if: * Heavy bleeding (saturating several pads an hour) or passing clots the size of your fist. * A fever >101 degrees F (38.3 degrees C) on two occasions four hours apart and /or chills. * Unusual pain in the pelvic or vaginal areas. * Call the doctor for any increased redness, drainage or swelling around the incision and any pain unrelieved by prescribed pain medication. * "Baby Blues" lasting longer than two weeks. If you have any questions or concerns, call your health care practitioner at . FOLLOW UP VISIT: * Please call the office at to schedule a 6 week examination. It is important you keep this appointment. It is important for you to make arrangements for either yearly or twice yearly check-ups thereafter. . Current Hospital Diet Patient's current hospital diet: Regular OB Diet Discharge Diet Recommended Diet: Regular Diet Procedures Procedures Performed: Low Transverse Primary Caesarean Section Pending Studies Studies pending at discharge: no Medical Emergencies . Who to Call and When: Medical Emergencies: If at any time you feel your situation is an emergency, please call [phone] immediately. . Non-Emergent Contact Non-Emergency issues call your: Receiver/Laborer . . "Provider Documentation" section prepared by Danna Mann. . [place] Drug Monitoring Program Search Results: patient reviewed within database, no issues identified
[2017-06-13] VITALS: BP 113/74; PULSE 89; TEMP 36.6
[2017-06-13] MEDS: IBUPROFEN 600 MG TAB PO PRN ×3 (00:45→12:54)
[2017-06-13] MEDS: OXYCODONE/ACETAMINOPHEN 5-325 TAB PO PRN ×3 (00:45→12:55)
--- NOTE | 2017-06-13 07:56 | Progress Note ---
Subjective Jun 13, 2017. Subjective conversation w/ patient, physical exam Ambulation: ambulating normally Voiding: no voiding problems Diet Tolerance: Regular Diet Lochia: Small Feeding Type: Breast Feeding Pain: right sided pain more than left, pain meds effective. Objective Vital Signs Date Time Temp Pulse Resp B/P (MAP) Pulse Ox O2 Delivery O2 Flow Rate FiO2 06/13/17 00:00 Room Air 06/13/17 00:00 36.6 89 20 113/74 (87) Room Air 06/12/17 15:30 Room Air 06/12/17 15:30 36.8 86 18 106/71 (83) Room Air 86 06/12/17 08:15 36.7 92 16 114/72 (86) 97 Room Air 92 06/12/17 08:15 97 Room Air Physical Exam General Appearance: WELL-APPEARING, WD/WN, NO APPARENT DISTRESS Respiratory/Chest: lungs clear Cardiovascular: regular rate, rhythm Abdomen: non tender, soft Fundus: Firm, Relation to Umbilicus (2 down) Incision Description: Clean, Dry & Intact Extremities: non-tender Assessment and Plan Problem List Medical Problems: (1) Threatened miscarriage in early Status: Acute Post-Op Day#: 3 Continue Routine Care: stable, ready for d/c home. instructions reviewed. f/u 6 wks pp check. she will use percocet and motrin for pain. checked on [place] pdmp and no issues identified.
[2017-06-13] MEDS ORDERED: OXYC-57 PO (07:57)
[2017-06-13] MEDS ORDERED: MTR600X PO (07:57)
[2017-06-13] MEDS: SIMETHICONE 80 MG CHEW PO SCH ×2 (08:11→11:54)
[2017-06-13] MEDS: DOCUSATE SODIUM 100 MG CAP PO SCH (08:11)
[2017-06-13] MEDS: PRENATAL VITAMIN TAB PO SCH (08:11)
[2017-06-13 08:23] VITALS: BP 112/79; PULSE 80; TEMP 37; O2SAT 98
[2017-06-13 12:34] VITALS: BP_DIAS 79; PULSE 80; TEMP 37
== END 2017-06-13 13:05 | disposition home or self-care (01) | DRG 766 ==
LOC: C.LD 07:04 → EDSTATUS 09:00 → C.OBG 16:38
PROVIDERS: ADMIT Obstetrics & Gynecology; ATTEND Obstetrics & Gynecology
PROC: 10D00Z1 Extraction of Products of Conception, Low, Open Approach (ICD-10-PCS; principal; 2017-06-10 09:00)
DX: O32.8XX0 Maternal care for other malpresentation of fetus, not applicable or unspecified (principal); O34.03 Maternal care for unspecified congenital malformation of uterus, third trimester; Q51.3 Bicornate uterus; O99.89 Other specified diseases and conditions complicating pregnancy, childbirth and the puerperium; M79.1 Myalgia; M79.662 Pain in left lower leg; Z3A.39 39 weeks gestation of pregnancy; Z37.0 Single live birth; Z79.899 Other long term (current) drug therapy; Z85.71 Personal history of Hodgkin lymphoma; Z87.74 Personal history of (corrected) congenital malformations of heart and circulatory system

== ENCOUNTER → 2017-06-24 | Outpatient (CLI) | payer OTHER ==
[~2017-06-24] MED LIST changes: -CEFAZOLIN IV 2,000 MG in SYRINGE 0 ML IV SCH; -CITRIC ACID/SODIUM CITRATE 15 ML UDC PO SCH; -CYCL5TAB PO; -DiphenhydrAMINE HCL 50 MG/ML VIAL IV PRN; -FOLI1TAB8 PO; +MTR600X PO; +OXYC-57 PO
== END | disposition home or self-care (01) ==
LOC: C.LAB1850 16:28
PROVIDERS: ATTEND Obstetrics & Gynecology
DX: R30.9 Painful micturition, unspecified (principal)